=== PATIENT | male | born 1960 | race Caucasian/White ===

== ENCOUNTER 2019-01-25 10:31 | Emergency (ER) | payer MEDICARE, OTHER ==
[2019-01-25] MEDS ORDERED: Aspirin 81 MG Tab.Chew PO ONE (10:43)
--- NOTE | 2019-01-25 10:56 | EDM.PDOC ---
ED HPI GENERAL MEDICAL PROBLEM - General Stated Complaint: CHEST PAINS Time Seen by Provider: 01/25/19 10:45 Source of Information: Reports: Patient History Limitations: Reports: No Limitations - History of Present Illness INITIAL COMMENTS - FREE TEXT/NARRATIVE: This 58 yo male patient reports to the ED with chest pressure. The patient reports his symptoms started last night and have continued since that time. The patient reports a history of A. Fib, acid reflux and a heart transplant. The patient states he used to take ranitidine for heart burn, but stopped taking when he quit drinking coffee and has not had any problems. The patient reports he tried an antacid last night and again this morning with no changes in his symptoms. The patient reports he had a large meal at noon yesterday, but only had a chocolate shake and a 7up this morning. Onset Date: 01/24/19 Duration: Constant Location: Reports: Chest Quality: Reports: Pressure Severity: Moderate Improves with: Reports: None Worsens with: Reports: None Context: Reports: Other Associated Symptoms: Reports: Chest Pain Treatments CLINICAL STAFF ANESTHESIOLOGIST: Reports: Other Medication(s) Mid-Sternal Chest Pain Score (Numeric/FACES): 7 - Related Data Allergies Allergy/AdvReac Type Severity Reaction Status Date / Time Iodinated Contrast- Oral and Allergy Mild Nausea and Verified 10/01/15 13:32 IV Dye Vomiting [Iodinated Contrast Media - IV Dye] Home Meds: Home Meds Aspirin 81 mg PO DAILY 10/01/15 [History] Cilostazol [Pletal] 1 tab PO BID 10/01/15 [History] Gabapentin [Neurontin] 1 tab PO BID 10/01/15 [History] Magnesium Oxide 1 tab PO DAILY 10/01/15 [History] Metoprolol Succinate [Toprol XL] 150 mg PO DAILY 10/01/15 [History] Rosuvastatin Calcium [Crestor] 1 tab PO DAILY 10/01/15 [History] Sirolimus 1 tab PO DAILY 10/01/15 [History] Tacrolimus [Prograf] 1 tab PO BID 10/01/15 [History] Past Medical History HEENT History: Reports: None Cardiovascular History: Reports: Afib, Arrhythmia, Cardiomyopathy (heart transplant,), [place] Gastrointestinal History: Reports: GERD Genitourinary History: Reports: None Musculoskeletal History: Reports: None Neurological History: Reports: Neuropathy, Peripheral Endocrine/Metabolic History: Reports: None Immunologic History: 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, Solid Organ Transplant, Other ( See Below) 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 Dermatologic History: Reports: None, Eczema - Past Surgical History Cardiovascular Surgical History: Reports: Other (See Below) Social & Family History - Family History HEENT: Reports: None Cardiac: Reports: None, Afib Respiratory: Reports: None GI: Reports: None : Reports: None OBGYN: Reports: None Musculoskeletal: Reports: None Neurological: Reports: None Psychiatric: Reports: None Endocrine/Metabolic: Reports: None Hematologic: Reports: None Immunologic: Reports: None Dermatologic: Reports: None Oncologic: Reports: None ED ROS GENERAL - Review of Systems Review Of Systems: ROS reveals no pertinent complaints other than HPI. ED EXAM, GENERAL - Physical Exam Exam: See Below Exam Limited By: No Limitations General Appearance: Alert, WD/WN, Mild Distress Eye Exam: Bilateral Eye: EOMI, Normal Inspection, PERRL Ears: Normal External Exam, Normal Canal, Hearing Grossly Normal, Normal TMs Nose: Normal Inspection, Normal Mucosa, No Blood Throat/Mouth: Normal Inspection, Normal Lips, Normal Teeth, Normal Gums, Normal Oropharynx, Normal Voice, No Airway Compromise Head: Atraumatic, Normocephalic Neck: Normal Inspection, Supple, Non-Tender, Full Range of Motion Cardiovascular: No Edema, No Gallop, No JVD, No Murmur, No Rub, Irregularly Irregular GI/Abdominal: Normal Bowel Sounds, Soft, Non-Tender, No Organomegaly, No Distention, No Abnormal Bruit, No Mass (Male) Exam: Deferred Rectal (Males) Exam: Deferred Back Exam: Normal Inspection, Full Range of Motion, NT Extremities: Normal Inspection, Normal Range of Motion, Non-Tender, Normal Capillary Refill, No Pedal Edema Neurological: Alert, Oriented, CN II-XII Intact, Normal Cognition, Normal Gait, Normal Reflexes, No Motor/Sensory Deficits Psychiatric: Normal Affect, Normal Mood Skin Exam: Warm, Dry, Intact, Normal Color, No Rash Lymphatic: No Adenopathy Course - Vital Signs Last Recorded V/S: Last Vital Signs Temp 37.0 C 01/25/19 10:47 Pulse 108 H 01/25/19 10:47 Resp 14 01/25/19 10:47 BP 141/79 H 01/25/19 10:47 Pulse Ox 99 01/25/19 10:47 - Orders/Labs/Meds Orders: Active Orders 24 hr Category Date Time Status EKG Documentation Completion [RC] URGENT Care 01/25/19 10:36 Ordered Chest 1V Frontal [CR] Urgent Exams 01/25/19 10:36 Ordered Chest w Cont [CT] Urgent Exams 01/25/19 12:06 Ordered Labs: Laboratory Tests 01/25/19 01/25/19 01/25/19 Range/Units 11:06 11:06 11:06 WBC 6.3 (5.0-10.0) 10^3/uL RBC 4.92 (4.6-6.2) 10^6/uL Hgb 14.2 (14.0-18.0) g/dL Hct 41.9 (40.0-54.0) % MCV 85.2 (80-100) fL MCH 28.9 (27.0-34.0) pg MCHC 33.9 (33.0-35.0) g/dL Plt Count 161 (150-450) 10^3/uL Neut % (Auto) 74.6 (42.2-75.2) % Lymph % (Auto) 15.5 L (20.5-50.1) % Sequoyah % (Auto) 8.9 H (2-8) % Eos % (Auto) 0.5 L (1.0-3.0) % Baso % (Auto) 0.5 (0.0-1.0) % PT 10.3 (9.0-12.0) SEC INR 1.0 (0.9-1.2) D-Dimer, Quantitative 3920 H (0-400) ng/mL Sodium 135 (135-145) mmol/L Potassium 3.4 L (3.6-5.0) mmol/L Chloride 99 L (101-111) mmol/L Carbon Dioxide 24.0 (21.0-31.0) mmol/L Anion Gap 15.4 BUN 15 (7-18) mg/dL Creatinine 1.1 (0.6-1.3) mg/dL Est Cr Clr Drug Dosing 85.54 mL/min Estimated GFR (MDRD) > 60 BUN/Creatinine Ratio 13.63 Glucose 93 (74-105) mg/dL Calcium 8.7 (8.4-10.2) mg/dl Total Bilirubin 0.9 (0.2-1.0) mg/dL AST 32 (10-42) IU/L ALT 29 (10-60) IU/L Alkaline Phosphatase 150 H (42-121) IU/L Troponin I < 0.02 (0.00-0.02) ng/ml Total Protein 7.4 (6.7-8.2) g/dl Albumin 3.7 (3.2-5.5) g/dl Globulin 3.7 Albumin/Globulin Ratio 1.00 Meds: Medications Discontinued Medications Generic Name Dose Route Start Last Admin Trade Name Freq PRN Reason Stop Dose Admin Aspirin 324 mg 01/25/19 10:43 01/25/19 11:10 Aspirin PO 01/25/19 10:44 324 mg ONETIME ONE Administration Diphenhydramine HCl 25 mg 01/25/19 12:05 01/25/19 12:08 Benadryl IVPUSH 01/25/19 12:06 25 mg ONETIME ONE Administration Iopamidol 100 ml 01/25/19 12:06 01/25/19 12:29 Isovue-370 (76%) IVPUSH 01/25/19 12:07 100 ml ONETIME ONE Administration Ondansetron HCl 4 mg 01/25/19 12:05 01/25/19 12:09 Zofran IV 01/25/19 12:06 4 mg ONETIME ONE Administration Departure - Departure Time of Disposition: 12:55 Disposition: Home, Self-Care 01 Condition: Fair Clinical Impression: Nonspecific chest pain GERD (gastroesophageal reflux disease) Qualifiers: Esophagitis presence: with esophagitis Qualified Code(s): K21.0 - Gastro- esophageal reflux disease with esophagitis Instructions: Heartburn, [id number], Nonspecific Chest Pain, [id number] Forms: ED Department Discharge Care Plan Goals: The patient was advised of the examination, lab, x-ray, CT and EKG results during the visit. The patient was encouraged to start taking his ranitidine. If the patient has any additional symptoms or concerns, the patient should either return to the emergency department or visit his primary care facility. - My Orders Last 24 Hours: My Active Orders 01/25/19 10:36 EKG Documentation Completion [RC] URGENT Chest 1V Frontal [CR] Urgent 01/25/19 12:06 Chest w Cont [CT] Urgent - Assessment/Plan Last 24 Hours: My Active Orders 01/25/19 10:36 EKG Documentation Completion [RC] URGENT Chest 1V Frontal [CR] Urgent 01/25/19 12:06 Chest w Cont [CT] Urgent
[2019-01-25 11:09] VITALS: BP 141/79; PULSE 108
[2019-01-25 11:33] LABS: ANION GAP 15.4; CHLORIDE,CL 99 mmol/L (101-111); SODIUM,NA 135 mmol/L (135-145)
[2019-01-25] MEDS ORDERED: Ondansetron 4 MG/2 ML SDV IV ONE (12:05)
[2019-01-25] MEDS ORDERED: diphenhydrAMINE 50 MG/ML SDV IVPUSH ONE (12:05)
[2019-01-25] MEDS ORDERED: Iopamidol 755 Mg/ML 100 ML Bottle IVPUSH ONE (12:06)
== END 2019-01-25 13:10 | disposition home or self-care (01) ==
LOC: DL.ED 10:31
DX: K21.0 Gastro-esophageal reflux disease with esophagitis (principal); I25.2 Old myocardial infarction; I48.91 Unspecified atrial fibrillation; Z79.82 Long term (current) use of aspirin; Z79.899 Other long term (current) drug therapy; Z91.041 Radiographic dye allergy status
CPT/HCPCS: 36415; 71045; 71260; 80053; 84484; 85025; 85379; 85610; 93005; 96374; 96375; 99285; A9270; J1200; J2405; Q9967; 99283

== ENCOUNTER 2022-01-25 06:27 | Emergency (ER) | payer MEDICARE, OTHER ==
[2022-01-25 06:49] VITALS: BP 187/117; PULSE 78
[2022-01-25 07:52] LABS: ANION GAP 12.4 mEq/L (7-13)
[2022-01-25 08:20] LABS: CORONAVIRUS COVID-19 NAA NEGATIVE (NEGATIVE)
[2022-01-25] MEDS: Magnesium Sulfate/Water 2 GM in Premix Bag 1 BAG IV ONE (08:33)
== END 2022-01-25 10:13 | disposition home or self-care (01) ==
LOC: DL.ED 06:27
DX: K52.9 Noninfective gastroenteritis and colitis, unspecified (principal); I48.91 Unspecified atrial fibrillation; E83.42 Hypomagnesemia; D68.9 Coagulation defect, unspecified; K21.9 Gastro-esophageal reflux disease without esophagitis; I25.2 Old myocardial infarction; Z91.041 Radiographic dye allergy status; Z79.01 Long term (current) use of anticoagulants; Z79.899 Other long term (current) drug therapy; Z20.822 Contact with and (suspected) exposure to COVID-19; Z94.1 Heart transplant status
CPT/HCPCS: 0240U; 36415; 71045; 80053; 83605; 83735; 83880; 84443; 84484; 85025; 85379; 85610; 87040; 93005; 93010; 96365; 99284; 99285; J3475

== ENCOUNTER 2022-02-03 04:01 | Emergency (ER) | payer MEDICARE, OTHER ==
[2022-02-03 06:39] VITALS: BP 135/84; PULSE 98
[2022-02-03 06:55] LABS: ANION GAP 10.7 mEq/L (7-13)
== END 2022-02-03 06:36 | disposition home or self-care (01) ==
LOC: DL.ED 04:01
DX: R53.1 Weakness (principal); I48.91 Unspecified atrial fibrillation; D68.9 Coagulation defect, unspecified; I25.2 Old myocardial infarction; Z91.041 Radiographic dye allergy status; Z79.01 Long term (current) use of anticoagulants; Z79.899 Other long term (current) drug therapy
CPT/HCPCS: 36415; 80053; 82550; 83735; 85025; 93005; 93010; 99284; 99285-25

== ENCOUNTER 2023-07-07 07:22 | Emergency (ER) | payer MEDICARE, OTHER ==
[2023-07-07] MEDS ORDERED: Sodium Chloride 0.9% 10 ML Syringe FLUSH PRN (07:28)
[2023-07-07 07:42] VITALS: BP 134/79; PULSE 125
[2023-07-07 07:43] LABS: HEMATOCRIT 45.2 % (40.0-54.0); HEMOGLOBIN 15.4 g/dL (14.0-18.0); MEAN CORPUSCULAR HEMOGLOBIN 30.7 pg (27.0-34.0); MEAN CORPUSCULAR HGB CONC 34.1 g/dL (33.0-35.0); PLATELET COUNT,PLT 135 10^3/uL (150-450); RED BLOOD CELL COUNT 5.02 10^6/uL (4.6-6.2); WHITE BLOOD CELL COUNT,WBC 4.6 10^3/uL (5.0-10.0)
[2023-07-07 08:03] LABS: A/G RATIO 0.64; ALANINE AMINOTRANSFERASE,ALT 33 U/L (16-63); ALBUMIN 2.3 g/dL (3.4-5.0); ALKALINE PHOSPHATASE 165 U/L (46-116); ANION GAP 12.1 mEq/L (7-13); ASPARTATE AMNIOTRANSFERASE,AST 43 U/L (15-37); BASOPHILS PERCENT AUTO 0.2 % (0.0-1.0); BILIRUBIN TOTAL 0.5 mg/dL (0.2-1.0); BLOOD UREA NITROGEN,BUN 13 mg/dL (7-18); BUN/CREATININE RATIO 10.2 (No establ ref range); C-REACTIVE PROTEIN 1.38 ng/dL (<=0.50); CARBON DIOXIDE,CO2 26 mmol/L (21-32); CHLORIDE,CL 101 mmol/L (98-107); CREATININE 1.27 mg/dL (0.70-1.30); EOSINOPHILS PERCENT AUTO 0.7 % (1.0-3.0); EST CRCL DRUG DOSING (CG) 58.76 mL/min; ESTIMATED GFR 63 mL/min (>=60); GLUCOSE RANDOM 119 mg/dL (70-99); LIPASE 16 U/L (16-77); LYMPHOCYTES PERCENT AUTO 13.6 % (20.5-50.1); MAGNESIUM 1.4 mg/dL (1.8-2.4); MONOCYTES PERCENT AUTO 14.2 % (2-8); NEUTROPHILS PERCENT AUTO 71.3 % (42.2-75.2); POTASSIUM,K 3.1 mmol/L (3.5-5.1); PROTEIN TOTAL,TP 5.9 g/dL (6.4-8.2); SODIUM,NA 136 mmol/L (136-145)
[2023-07-07 08:04] LABS: ETHANOL BLOOD MEDICAL < 3 mg/dL (0)
[2023-07-07 08:06] LABS: LACTIC ACID 1.6 mmol/L (0.4-2.0)
[2023-07-07 08:17] LABS: AMPHETAMINES,URINE NEGATIVE (NEGATIVE); APPEARANCE,URINE CLEAR (CLEAR); BARBITURATES,URINE NEGATIVE (NEGATIVE); BENZODIAZEPINE,URINE NEGATIVE (NEGATIVE); BILIRUBIN,URINE NEGATIVE (NEGATIVE); COLOR,URINE YELLOW (YELLOW); GLUCOSE,URINE NEGATIVE (NEGATIVE); KETONES,URINE NEGATIVE (NEGATIVE); LEUKOCYTE ESTERASE,URINE NEGATIVE (NEGATIVE); MDMA (ECSTASY), URINE NEGATIVE (NEGATIVE); METHADONE,URINE NEGATIVE (NEGATIVE); METHAMPHETAMINES,URINE NEGATIVE (NEGATIVE); NITRITE,URINE NEGATIVE (NEGATIVE); OCCULT BLOOD,URINE TRACE-INTACT (NEGATIVE); OPIATES,URINE NEGATIVE (NEGATIVE); OXYCODONE,URINE NEGATIVE (NEGATIVE); PH,URINE 5.5 (5.0-9.0); PHENCYCLIDINE,URINE NEGATIVE (NEGATIVE); PROTEIN,URINE 100 (NEGATIVE); TCA,URINE NEGATIVE (NEGATIVE); UROBILINOGEN,URINE 0.2 mg/dL (0.2-1.0)
[2023-07-07] MEDS ORDERED: Lactated Ringers 1,000 ML IV ONE (08:18)
[2023-07-07] MEDS ORDERED: Magnesium Sulfate/Water 2 GM in Premix Bag 1 BAG IV ONE ×2 (08:18→09:49)
[2023-07-07] MEDS ORDERED: Potassium Chloride 20 MEQ in Premix Bag 1 BAG IV ONE (08:18)
[2023-07-07 08:20] LABS: CORONAVIRUS COVID-19 NAA NEGATIVE (NEGATIVE); INFLUENZA A NAA NEGATIVE (NEGATIVE); INFLUENZA B NAA NEGATIVE (NEGATIVE); RESPIRATORY SYNCYTIAL VIR NAA NEGATIVE (NEGATIVE)
[2023-07-07 08:20] LABS: PROTHROMBIN TIME 10.2 SEC (9.0-12.0); PTT,PARTIAL THROMBOPLSTIN TIME 31.7 SEC (22.0-34.0)
[2023-07-07 08:26] LABS: LYMPHOCYTES PERCENT MAN 11 % (20-50); MONOCYTES PERCENT MAN 15 % (2-8); SEG NEUTROPHILS PERCENT MAN 74 % (42-75)
[2023-07-07 08:33] LABS: BACTERIA,URINE FEW /HPF (0-FEW/HPF); CALCIUM OXALATE CRYSTALS,URINE FEW /HPF (NOT SEEN); EPITHELIAL CELLS,URINE RARE /HPF (NOT SEEN); HYALINE CASTS,URINE FEW; MUCUS,URINE FEW /LPF (NOT SEEN); RBC,URINE 0-5 /HPF (0-5); WBC,URINE 0-5 /HPF (0-5/HPF)
[2023-07-07] MEDS ORDERED: Potassium Chloride 10 MEQ Tab.ER PO ONE (10:54)
== END 2023-07-07 12:32 | disposition home or self-care (01) ==
LOC: DL.ED 07:22
DX: K52.9 Noninfective gastroenteritis and colitis, unspecified (principal); E86.0 Dehydration; I48.21 Permanent atrial fibrillation; E83.42 Hypomagnesemia; E87.6 Hypokalemia; D84.821 Immunodeficiency due to drugs; Z94.1 Heart transplant status; I25.2 Old myocardial infarction; Z91.041 Radiographic dye allergy status; Z79.899 Other long term (current) drug therapy; Z20.822 Contact with and (suspected) exposure to COVID-19
CPT/HCPCS: 0241U; 36415; 80053; 80305; 80307; 81001; 83605; 83690; 83735; 85025; 85610; 85730; 86140; 87040; 87045; 87328; 87329; 87493; 96361; 96365; 96366; 96368; 99284; A9270; J3475; J3480; J7120; 87046; 87899; J3490

== ENCOUNTER 2023-11-23 05:25 | Emergency (ER) | payer MEDICARE, OTHER ==
[2023-11-23 06:04] LABS: BASOPHILS PERCENT AUTO 0.5 % (0.0-1.0); EOSINOPHILS PERCENT AUTO 0.8 % (1.0-3.0); HEMATOCRIT 47.3 % (40.0-54.0); HEMOGLOBIN 16.4 g/dL (14.0-18.0); LYMPHOCYTES PERCENT AUTO 11.2 % (20.5-50.1); MEAN CORPUSCULAR HGB CONC 34.7 g/dL (33.0-35.0); MEAN CORPUSCULAR VOLUME 86.6 fL (80-100); MONOCYTES PERCENT AUTO 12.4 % (2-8); NEUTROPHILS PERCENT AUTO 75.1 % (42.2-75.2); PLATELET COUNT,PLT 135 10^3/uL (150-450); RED BLOOD CELL COUNT 5.46 10^6/uL (4.6-6.2); WHITE BLOOD CELL COUNT,WBC 3.9 10^3/uL (5.0-10.0)
[2023-11-23] MEDS ORDERED: Norepinephrine Bit/D5W Premix 250 ML IV SCH (06:15)
[2023-11-23] MEDS: Sodium Chloride 0.9% 1,000 ML IV ONE ×2 (06:15→06:44)
[2023-11-23] MEDS: Sodium Chloride 0.9% 10 ML Syringe FLUSH PRN (06:15)
[2023-11-23] MEDS: Piperacillin/Tazobactam 4.5 GM in Sodium Chloride 0.9% 100 ML IV ONE (06:17)
[2023-11-23 06:20] LABS: ALANINE AMINOTRANSFERASE,ALT 35 U/L (16-63); ALBUMIN 2.4 g/dL (3.4-5.0); ALKALINE PHOSPHATASE 177 U/L (46-116); ANION GAP 14.5 mEq/L (7-13); ASPARTATE AMNIOTRANSFERASE,AST 43 U/L (15-37); BILIRUBIN TOTAL 0.8 mg/dL (0.2-1.0); BLOOD UREA NITROGEN,BUN 15 mg/dL (7-18); C-REACTIVE PROTEIN 2.71 ng/dL (<=0.50); CALCIUM 7.9 mg/dL (8.5-10.1); CARBON DIOXIDE,CO2 26 mmol/L (21-32); CHLORIDE,CL 99 mmol/L (98-107); CREATININE 1.36 mg/dL (0.70-1.30); GLUCOSE RANDOM 104 mg/dL (70-99); POTASSIUM,K 3.5 mmol/L (3.5-5.1); SODIUM,NA 136 mmol/L (136-145)
[2023-11-23] MEDS: Vancomycin 1.5 GM in Sodium Chloride 0.9% 500 ML IV ONE (06:22)
[2023-11-23 06:23] LABS: LACTIC ACID 1.2 mmol/L (0.4-2.0)
[2023-11-23 06:27] LABS: A/G RATIO 0.67; ESTIMATED GFR 58 mL/min (>=60)
[2023-11-23 06:43] LABS: CORONAVIRUS COVID-19 NAA NEGATIVE (NEGATIVE); INFLUENZA A NAA NEGATIVE (NEGATIVE); INFLUENZA B NAA NEGATIVE (NEGATIVE)
[2023-11-23 07:47] VITALS: BP 121/62; PULSE 107
== END 2023-11-23 10:01 ==
LOC: DL.ED 05:25
DX: A41.9 Sepsis, unspecified organism (principal); R65.20 Severe sepsis without septic shock; J18.9 Pneumonia, unspecified organism; I48.20 Chronic atrial fibrillation, unspecified; D84.821 Immunodeficiency due to drugs; I25.2 Old myocardial infarction; K21.9 Gastro-esophageal reflux disease without esophagitis; Z91.041 Radiographic dye allergy status; Z79.01 Long term (current) use of anticoagulants; Z79.899 Other long term (current) drug therapy; Z94.1 Heart transplant status
CPT/HCPCS: 0240U; 36415; 71045; 80053; 83605; 83880; 84145; 84484; 85025; 86140; 87040; 87070; 87205; 93005; 93010; 94010; 94667; 96365; 96366; 96367; 99285; J2543; J3370; J3490; J7030; J7040

== ENCOUNTER 2024-03-12 02:41 | Emergency (ER) | payer MEDICARE, OTHER ==
[2024-03-12 03:01] VITALS: BP 144/89; PULSE 88
[2024-03-12 03:15] LABS: BASOPHILS PERCENT AUTO 0.3 % (0.0-1.0); EOSINOPHILS PERCENT AUTO 0.9 % (1.0-3.0); HEMATOCRIT 51.4 % (40.0-54.0); HEMOGLOBIN 17.3 g/dL (14.0-18.0); LYMPHOCYTES PERCENT AUTO 8.6 % (20.5-50.1); MEAN CORPUSCULAR HEMOGLOBIN 30.1 pg (27.0-34.0); MEAN CORPUSCULAR HGB CONC 33.7 g/dL (33.0-35.0); MEAN CORPUSCULAR VOLUME 89.5 fL (80-100); MONOCYTES PERCENT AUTO 9.4 % (2-8); NEUTROPHILS PERCENT AUTO 80.8 % (42.2-75.2); PLATELET COUNT,PLT 168 10^3/uL (150-450); RED BLOOD CELL COUNT 5.74 10^6/uL (4.6-6.2); WHITE BLOOD CELL COUNT,WBC 6.4 10^3/uL (5.0-10.0)
[2024-03-12 04:12] LABS: ALBUMIN 2.3 g/dL (3.4-5.0); ANION GAP 7.5 mEq/L (7-13); BILIRUBIN TOTAL 0.8 mg/dL (0.2-1.0); BUN/CREATININE RATIO 14.7 (No establ ref range); CALCIUM 8.6 mg/dL (8.5-10.1); CREATININE 1.29 mg/dL (0.70-1.30); EST CRCL DRUG DOSING (CG) 57.09 mL/min; MAGNESIUM 1.7 mg/dL (1.8-2.4); POTASSIUM,K 3.5 mmol/L (3.5-5.1); PROTEIN TOTAL,TP 5.7 g/dL (6.4-8.2)
[2024-03-12 04:14] LABS: A/G RATIO 0.68
[2024-03-12] MEDS: Magnesium Sulfate/Water 2 GM in Premix Bag 1 BAG IV ONE (04:35)
[2024-03-12] MEDS: Sodium Chloride 0.9% 10 ML Syringe FLUSH PRN (04:39)
== END 2024-03-12 07:00 | disposition home or self-care (01) ==
LOC: DL.ED 02:41
DX: E83.42 Hypomagnesemia (principal); I10 Essential (primary) hypertension; I25.2 Old myocardial infarction; I48.91 Unspecified atrial fibrillation; E78.00 Pure hypercholesterolemia, unspecified; Z79.01 Long term (current) use of anticoagulants; Z79.899 Other long term (current) drug therapy; Z91.041 Radiographic dye allergy status
CPT/HCPCS: 36415; 71046; 80053; 83735; 83880; 84484; 85025; 93005; 93010; 96365; 96366; 99284; J3475; J3490

== ENCOUNTER 2025-01-02 21:18 | Emergency (ER) | payer MEDICARE, OTHER ==
[2025-01-02] MEDS: Metoprolol Tartrate 5 MG/5 ML SDV IVPUSH ONE (21:39)
[2025-01-02 21:47] LABS: BASOPHILS PERCENT AUTO 0.4 % (0.0-1.0); EOSINOPHILS PERCENT AUTO 1.2 % (1.0-3.0); HEMATOCRIT 47.3 % (40.0-54.0); LYMPHOCYTES PERCENT AUTO 8.3 % (20.5-50.1); MEAN CORPUSCULAR HEMOGLOBIN 31.1 pg (27.0-34.0); MEAN CORPUSCULAR HGB CONC 33.8 g/dL (33.0-35.0); MEAN CORPUSCULAR VOLUME 91.8 fL (80-100); MONOCYTES PERCENT AUTO 12.6 % (2-8); NEUTROPHILS PERCENT AUTO 77.5 % (42.2-75.2); PLATELET COUNT,PLT 157 10^3/uL (150-450); RED BLOOD CELL COUNT 5.15 10^6/uL (4.6-6.2); WHITE BLOOD CELL COUNT,WBC 7.7 10^3/uL (5.0-10.0)
[2025-01-02 22:04] LABS: B-TYPE NATRIURETIC PEPTIDE,BNP 78 pg/ml (0-100)
[2025-01-02 22:07] LABS: ALANINE AMINOTRANSFERASE,ALT 73 U/L (16-63); ALBUMIN 2.1 g/dL (3.4-5.0); ALKALINE PHOSPHATASE 150 U/L (46-116); ANION GAP 11.6 mEq/L (7-13); ASPARTATE AMNIOTRANSFERASE,AST 58 U/L (15-37); BILIRUBIN TOTAL 0.7 mg/dL (0.2-1.0); BLOOD UREA NITROGEN,BUN 20 mg/dL (7-18); BUN/CREATININE RATIO 18.2 (No establ ref range); CALCIUM 8.4 mg/dL (8.5-10.1); CARBON DIOXIDE,CO2 26 mmol/L (21-32); CHLORIDE,CL 103 mmol/L (98-107); EST CRCL DRUG DOSING (CG) 66.06 mL/min; GLUCOSE RANDOM 136 mg/dL (70-99); MAGNESIUM 1.6 mg/dL (1.8-2.4); POTASSIUM,K 3.6 mmol/L (3.5-5.1); PROTEIN TOTAL,TP 5.3 g/dL (6.4-8.2); SODIUM,NA 137 mmol/L (136-145)
[2025-01-02 22:08] LABS: A/G RATIO 0.66; C-REACTIVE PROTEIN < 0.50 ng/dL (<=0.50); ESTIMATED GFR 74 mL/min (>=60)
[2025-01-03] MEDS: Magnesium Sulfate 2 GM/50 mL 2 GM in Premix Bag 1 BAG IV ONE (00:55)
[2025-01-03] MEDS: Potassium Chloride 10 MEQ Tab.ER PO ONE (00:55)
[2025-01-03 02:01] VITALS: BP 117/66; PULSE 77
== END 2025-01-03 01:53 | disposition home or self-care (01) ==
LOC: DL.ED 21:18
DX: I11.0 Hypertensive heart disease with heart failure (principal); I48.20 Chronic atrial fibrillation, unspecified; E87.6 Hypokalemia; E83.42 Hypomagnesemia; E78.00 Pure hypercholesterolemia, unspecified; Z91.041 Radiographic dye allergy status; Z79.899 Other long term (current) drug therapy
CPT/HCPCS: 36415; 71045; 80053; 83605; 83735; 83880; 84484; 85025; 86140; 87081; 87428; 87430; 96365; 96375; 99285; A9270; J3475; J3490; 93010; 99284